=== PATIENT | female | born 1955 | race Caucasian/White ===

== ENCOUNTER 2018-04-16 08:37 | Emergency (ER) | payer OTHER ==
[~2018-04-16] VITALS: Ht 149.9 cm; Wt 65.5 kg
[2018-04-16 10:19] VITALS: BP 145/89
== END 2018-04-16 10:19 | disposition home or self-care (01) ==
LOC: ED 08:37
DX: S93.401A Sprain of unspecified ligament of right ankle, initial encounter (principal); W01.0XXA Fall on same level from slipping, tripping and stumbling without subsequent striking against object, initial encounter; Y93.89 Activity, other specified; Y92.89 Other specified places as the place of occurrence of the external cause; Y99.8 Other external cause status
CPT/HCPCS: Q0092

== ENCOUNTER 2019-06-27 09:34 | Emergency (ER) | payer OTHER ==
[~2019-06-27] VITALS: Ht 149.9 cm; Wt 60.3 kg
[2019-06-27 09:37] VITALS: BP 128/77
== END 2019-06-27 10:32 | disposition home or self-care (01) ==
LOC: ED 09:34
DX: L30.9 Dermatitis, unspecified (principal)